=== PATIENT | female | born 1955 | race Caucasian/White ===

== ENCOUNTER 2020-10-18 00:28 | Emergency (ER) | payer MEDICAID ==
[~2020-10-18] VITALS: Ht 160 cm; Wt 50.0 kg
[2020-10-18 00:46] VITALS: BP 153/87; Ht 160 cm; Wt 50.0 kg
[2020-10-18] MEDS ORDERED: ALBUTEROL SULF8.5 GM INH (00:49)
== END 2020-10-18 01:43 | disposition home or self-care (01) ==
LOC: D.ER 00:28
DX: J45.901 Unspecified asthma with (acute) exacerbation (principal); R06.02 Shortness of breath